=== PATIENT | male | born 1995 | race Caucasian/White ===

== ENCOUNTER 2018-09-21 21:35 | Emergency (ER) | payer OTHER ==
[~2018-09-21] VITALS: Ht 175.3 cm; Wt 72.6 kg
[~2018-09-21 21:35] MED LIST: ALLEGRA ALLERG180 MG PO; LEVOTHYROXIN0.075 MG PO; POTASSIUM20 PO; ZANTAC 150MG T150 MG PO
[2018-09-21] MEDS ORDERED: OMEPRAZOLE 20 M20 M1 PO (21:43)
[2018-09-21 22:00] VITALS: BP 139/73
--- NOTE | 2018-09-22 09:18 | EKG ---
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
== END 2018-09-21 22:00 | disposition home or self-care (01) ==
LOC: M.ERS 21:35
DX: M94.0 Chondrocostal junction syndrome [Tietze] (principal); E03.9 Hypothyroidism, unspecified; F17.210 Nicotine dependence, cigarettes, uncomplicated; Z88.1 Allergy status to other antibiotic agents; Z88.2 Allergy status to sulfonamides